=== PATIENT | female | born 1980 | race Caucasian/White ===

== ENCOUNTER 2017-03-01 14:54 | Emergency (ER) | payer MEDICAID ==
[~2017-03-01] VITALS: Ht 160 cm; Wt 46.8 kg
[2017-03-01 15:11] VITALS: BP 117/72
== END 2017-03-01 16:08 | disposition home or self-care (01) ==
LOC: ED 15:45
DX: K02.9 Dental caries, unspecified (principal); K08.89 Other specified disorders of teeth and supporting structures
CPT/HCPCS: 99283

== ENCOUNTER 2017-11-26 19:23 | Emergency (ER) | payer MEDICAID ==
[~2017-11-26] VITALS: Ht 160 cm; Wt 55.0 kg
[2017-11-26 19:46] VITALS: BP 132/75
== END 2017-11-26 20:36 | disposition home or self-care (01) ==
LOC: ED 20:30
DX: K04.7 Periapical abscess without sinus (principal); K02.9 Dental caries, unspecified
CPT/HCPCS: 99283